=== PATIENT | male | born 1950 | race Two or more races ===

== ENCOUNTER 2024-11-08 11:51 | Inpatient (IN) | payer OTHER ==
[~2024-11-08] VITALS: Ht 152.4 cm; Wt 51.7 kg
[2024-11-08] MEDS ORDERED: FAMOtidine 10 MG/ML (4ML VIAL) IV STA (15:02)
[2024-11-08] MEDS ORDERED: FAMOTIDINE/PF 20 MG/2 ML VIAL ONE (15:15)
[2024-11-08 15:36] LABS: HEMATOCRIT 40.3 % (39.0-48.0); HEMOGLOBIN 13.9 g/dL (13-16.00); MEAN CELL VOLUME 94.4 fL (80.0-100.00); MEAN CORPUSCULAR HEMOGLOBIN 32.5 pg (27.00-32.0); MEAN CORPUSCULAR HGB CONC 34.5 g/dl (32.0-36.0); PLATELET COUNT 293 K/uL (150-450); RED BLOOD COUNT 4.27 M/uL (4.00-6.00); RED CELL DISTRIBUTION WIDTH 15.4 % (11.5-14.5)
[2024-11-08 15:54] LABS: PH,URINE 5.5 (5.0-8.0); URINE APPEARANCE Clear; URINE BILIRRUBIN Negative (NEGATIVE); URINE BLOOD Negative; URINE COLOR Dark Yellow; URINE GLUCOSE Negative (NEGATIVE); URINE KETONE Trace (NEGATIVE); URINE LEUKOCYTE Trace; URINE NITRATE Negative; URINE PROTEIN Negative (NEGATIVE)
[2024-11-08 16:01] LABS: URINE EPITHELIAL CELLS 3.1 uL (0.0-38.8); URINE RBC 16.7 uL (0.0-20.8); URINE WBC 4.8 uL (0.0-23.2)
[2024-11-08 16:08] LABS: CALCIUM 9.4 mg/dL (8.5-10.1); CREATININE SERUM 1.18 mg/dL (0.70-1.30); GFR 60.02; POTASSIUM 4.72 mEq/L (3.5-5.1)
[2024-11-08] MEDS ORDERED: ACETAMINOPHEN 500 MG GEL..CAP PO ONE ×2 (19:15→19:41)
[2024-11-08] MEDS ORDERED: CLOPIDOGREL BISULFATE 75 MG TABLET PO SCH (19:55)
[2024-11-08] MEDS ORDERED: LOSARTAN POTASSIUM 25 MG TABLET PO SCH (19:56)
[2024-11-08] MEDS ORDERED: ACETAMINOPHEN 500 MG GEL..CAP PO PRN (20:00)
[2024-11-08] MEDS ORDERED: 0.9 % SODIUM CHLORIDE 1,000 ML IV SCH (20:00)
[2024-11-08] MEDS ORDERED: TRAZODONE HCL 50 MG TABLET PO SCH (21:00)
[2024-11-09 00:29] VITALS: BP 149/70; O2SAT 97
[2024-11-09 00:31] VITALS: BP 149/70
[2024-11-09 01:20] LABS: D DIMER 0.79 MG/L; INR 0.97; PARTIAL THROMBOPLASTIN TIME 28.2 SECONDS (22.0-34.0); PROTHROMBIN TIME 10.6 SECONDS (9.0-11.5)
[2024-11-09] MEDS ORDERED: FAMOTIDINE/PF 20 MG/2 ML VIAL ONE (07:42)
[2024-11-09 07:45] LABS: CHOL HDL RATIO 2.4 (0-5.0); TSH 1.78 uIU/mL (0.358-3.74)
[2024-11-09 08:45] VITALS: BP 175/75; O2SAT 98
[2024-11-09] MEDS ORDERED: FAMOTIDINE/PF 20 MG in 0.9 % SODIUM CHLORIDE 8 ML IV PUSH SCH (09:00)
[2024-11-09] MEDS ORDERED: ATORVASTATIN CALCIUM 40 MG TABLET PO SCH (09:00)
[2024-11-09] MEDS ORDERED: FLUOXETINE HCL 20 MG CAPSULE PO SCH (09:00)
[2024-11-09 14:00] VITALS: O2SAT 98
[2024-11-09] MEDS ORDERED: DEXAMETHASONE 4 MG TABLET PO SCH (17:01)
[2024-11-09 17:05] VITALS: BP 146/67; O2SAT 99
[2024-11-09 17:45] VITALS: O2SAT 99
[2024-11-10] VITALS (9 sets, daily range): BP systolic 150–186; BP diastolic 72–90; O2SAT 95–99
[2024-11-10] MEDS ORDERED: THIAMINE HCL 100 MG TABLET PO SCH (00:55)
[2024-11-10 13:24] LABS: HEMATOCRIT 40.2 % (39.0-48.0); HEMOGLOBIN 13.7 g/dL (13-16.00); MEAN CORPUSCULAR HEMOGLOBIN 32.6 pg (27.00-32.0); PLATELET COUNT 290 K/uL (150-450); RED BLOOD COUNT 4.19 M/uL (4.00-6.00)
[2024-11-10 14:18] LABS: ALBUMIN 3.5 gm/dL (3.4-5.0); BILIRUBIN TOTAL 0.58 mg/dL (0.3-1.2); CALCIUM 9.1 mg/dL (8.5-10.1); CREATININE SERUM 1.01 mg/dL (0.70-1.30); GFR 71.82; GLOBULINA 4.5 G/DL (2.4-3.5); POTASSIUM 5.03 mEq/L (3.5-5.1)
[2024-11-11] VITALS (9 sets, daily range): BP systolic 145–167; BP diastolic 52–81; O2SAT 97–99
[2024-11-11] MEDS ORDERED: PROZAC40 MG PO (10:51)
[2024-11-11] MEDS ORDERED: EXCEDRIN MIGRA1 EAC1 PO (10:51)
[2024-11-12] VITALS (8 sets, daily range): BP systolic 125–160; BP diastolic 52–72; O2SAT 88–100
[2024-11-12 11:06] LABS: % FREE PSA 16.1 % (.); free psa 0.45 ng/mL; total psa 2.8 ng/mL (0.0-4.0)
[2024-11-13] VITALS (9 sets, daily range): BP systolic 137–160; BP diastolic 70–82; O2SAT 90–100
[2024-11-14] VITALS (11 sets, daily range): BP systolic 149–161; BP diastolic 70–77; O2SAT 96–100
[2024-11-14] MEDS ORDERED: fentaNYL CITRATE 50 MCG/ML AMPUL IV PUSH ONE (17:15)
[2024-11-14] MEDS ORDERED: MIDAZOLAM HCL 2 MG/2 ML VIAL IV PUSH ONE (17:15)
[2024-11-15 01:24] VITALS: BP 146/83
[2024-11-15 05:06] VITALS: O2SAT 97
[2024-11-15 09:02] VITALS: BP 145/68
[2024-11-15] MEDS ORDERED: FAMOTIDINE/PF 20 MG in 0.9 % SODIUM CHLORIDE 8 ML IV PUSH SCH (09:45)
[2024-11-15 09:48] VITALS: O2SAT 98
[2024-11-15 11:26] LABS: HEMATOCRIT 29.1 % (39.0-48.0); MEAN CELL VOLUME 90.5 fL (80.0-100.00); MEAN CORPUSCULAR HEMOGLOBIN 29.5 pg (27.00-32.0); MEAN CORPUSCULAR HGB CONC 32.8 g/dl (32.0-36.0); PLATELET COUNT 238 K/uL (150-450); RED BLOOD COUNT 3.22 M/uL (4.00-6.00); RED CELL DISTRIBUTION WIDTH 15.6 % (11.5-14.5)
[2024-11-15 12:15] LABS: HEMOGLOBIN 9.5 g/dL (13-16.00)
[2024-11-15 12:25] LABS: ALBUMIN 2.7 gm/dL (3.4-5.0); BILIRUBIN TOTAL 0.7 mg/dL (0.3-1.2); CALCIUM 9.2 mg/dL (8.5-10.1); CREATININE SERUM 1.34 mg/dL (0.70-1.30); GFR 51.83; GLOBULINA 3.6 G/DL (2.4-3.5); MAGNESIUM 1.8 mg/dL (1.8-2.4); PHOSPHOROUS 3.3 mg/dL (2.5-4.9); POTASSIUM 4.55 mEq/L (3.5-5.1); TOTAL PROTEIN 6.3 gm/dL (6.4-8.2)
[2024-11-15 14:21] VITALS: O2SAT 97
[2024-11-15] MEDS ORDERED: DEXAMETHASONE2 MG PO (16:36)
[2024-11-15] MEDS ORDERED: FAMOTIDINE20 MG PO (16:37)
== END 2024-11-15 17:34 | disposition home or self-care (01) | DRG 65 ==
LOC: ER 11:53 → SEC-K 21:13 → MEDI 21:13 → SEC-K 11-09 01:32 → MEDI 11-09 11:20
PROVIDERS: General Practice; Internal Medicine Hematology & Oncology; ADMIT Internal Medicine; ATTEND Internal Medicine
PROC: BW28ZZZ Computerized Tomography (CT Scan) of Head (ICD-10-PCS; principal; 2024-11-08)
PROC: B030ZZZ Magnetic Resonance Imaging (MRI) of Brain (ICD-10-PCS; 2024-11-08)
PROC: B246ZZZ Ultrasonography of Right and Left Heart (ICD-10-PCS; 2024-11-08)
PROC: B345ZZZ Ultrasonography of Bilateral Common Carotid Arteries (ICD-10-PCS; 2024-11-08)
PROC: BB24ZZZ Computerized Tomography (CT Scan) of Bilateral Lungs (ICD-10-PCS; 2024-11-09)
PROC: B030Y0Z Magnetic Resonance Imaging (MRI) of Brain using Other Contrast, Unenhanced and Enhanced (ICD-10-PCS; 2024-11-09)
PROC: 4A12X4Z Monitoring of Cardiac Electrical Activity, External Approach (ICD-10-PCS; 2024-11-09)
PROC: 0W993ZZ Drainage of Right Pleural Cavity, Percutaneous Approach (ICD-10-PCS; 2024-11-14)
DX: I63.9 Cerebral infarction, unspecified (principal); C34.91 Malignant neoplasm of unspecified part of right bronchus or lung; C34.92 Malignant neoplasm of unspecified part of left bronchus or lung; C79.31 Secondary malignant neoplasm of brain; I10 Essential (primary) hypertension; Z72.0 Tobacco use; E78.49 Other hyperlipidemia
CPT/HCPCS: 70544; 70552